=== PATIENT | male | born 1955 | race Caucasian/White ===

== ENCOUNTER 2018-06-25 01:19 | Observation (INO) | payer MEDICAID ==
--- NOTE | 2018-06-25 02:19 | EDM.PDOC ---
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 He does not recall how long or what happened. There were no witnesses or accounts to length of time he was out. Patient denies prior head injury. He is AAOx3 but has loss of recent memory. 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 ED EXAM, HEAD INJURY - Physical Exam Exam: See Below Exam Limited By: No Limitations General Appearance: Alert, WD/WN, No Apparent Distress Head: Scalp Lacerations, Scalp Swelling, Scalp Hematoma, Scalp Tenderness Eyes: Bilateral Eye: EOMI, PERRL Ears: Normal External Exam, Normal Canal, Hearing Grossly Normal Nose: Normal Inspection, Normal Mucousa, No Blood Throat/Mouth: Normal Inspection, Normal Lips, Normal Oropharynx, Normal Voice, No Airway Compromise Neck: Non-Tender Respiratory: No Respiratory Distress, Lungs Clear, Normal Breath Sounds Cardiovascular: Normal Peripheral Pulses, Regular Rate, Rhythm GI/Abdominal Exam: Normal Bowel Sounds, Soft, Non-Tender Back Exam: Normal Inspection Extremities: Normal Inspection, Normal Range of Motion, Non-Tender, No Pedal Edema, Normal Capillary Refill 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 As Tested, No Motor/Sensory Deficits, Alert, Normal Mood/Affect, Oriented x 3 Skin: Normal Color, Warm/Dry Course - Vital Signs Last Recorded V/S: Last Vital Signs Temp 36.6 C 06/25/18 01:23 Pulse 62 06/25/18 01:23 Resp 20 06/25/18 01:23 BP 122/76 06/25/18 01:23 Pulse Ox 98 06/25/18 01:23 - Orders/Labs/Meds Orders: Active Orders 24 hr Category Date Time Status Patient Status [ADT] Routine ADT 06/25/18 02:12 Ordered Oxygen Therapy [RC] PRN Care 06/25/18 02:12 Ordered Up With Assistance [RC] ASDIRECTED Care 06/25/18 02:12 Ordered Vital Signs [RC] Q4H Care 06/25/18 02:12 Ordered Regular Diet [DIET] Diet 06/25/18 Breakfast Ordered Head wo Cont [CT] Stat Exams 06/25/18 01:21 Taken Soft Tissue Neck wo Cont [CT] Stat Exams 06/25/18 01:21 Taken Resuscitation Status Routine Resus Stat 06/25/18 02:12 Ordered Departure - Departure Time of Disposition: 02:25 Disposition: Refer to Observation Condition: Fair Clinical Impression: Loss of consciousness, Dizziness on standing, Memory loss, short term Occipital scalp laceration Qualifiers: Encounter type: initial encounter Qualified Code(s): S01.01XA - Laceration without foreign body of scalp, initial encounter Headache Qualifiers: Headache type: post-traumatic Headache chronicity pattern: acute headache Intractability: intractable Qualified Code(s): G44.311 - Acute post-traumatic headache, intractable - Discharge Information - Problem List & Annotations (1) Alcohol intoxication SNOMED Code(s): 25344157 Code(s): F10.929 - ALCOHOL USE, UNSPECIFIED WITH INTOXICATION, UNSPECIFIED Status: Acute Priority: High Qualifiers: Complication of substance-induced condition: with unspecified complication Qualified Code(s): F10.929 - Alcohol use, unspecified with intoxication, unspecified (2) Dizziness on standing SNOMED Code(s): 160399694 Code(s): R42 - DIZZINESS AND GIDDINESS Status: Acute (3) Headache SNOMED Code(s): 51394675 Code(s): R51 - HEADACHE Status: Acute (4) Loss of consciousness SNOMED Code(s): 233175413, 584971541 Code(s): R40.20 - UNSPECIFIED COMA Status: Acute (5) Memory loss, short term SNOMED Code(s): 379910452 Code(s): R41.3 - OTHER AMNESIA Status: Acute (6) Occipital scalp laceration SNOMED Code(s): 482133870 Code(s): S01.01XA - LACERATION WITHOUT FOREIGN BODY OF SCALP, INITIAL ENCOUNTER Status: Acute Qualifiers: Encounter type: initial encounter Qualified Code(s): S01.01XA - Laceration without foreign body of scalp, initial encounter (7) Concussion SNOMED Code(s): 010927565 Code(s): S06.0X9A - CONCUSSION W LOSS OF CONSCIOUSNESS OF UNSP DURATION, INIT Status: Acute Priority: High Qualifiers: Encounter type: initial encounter Loss of consciousness presence/duration: with LOC of unspecified duration Qualified Code(s): S06.0X9A - Concussion with loss of consciousness of unspecified duration, initial encounter - Problem List Review Problem List Initiated/Reviewed/Updated: Yes - My Orders Last 24 Hours: My Active Orders 06/25/18 01:21 Head wo Cont [CT] Stat Soft Tissue Neck wo Cont [CT] Stat 06/25/18 02:12 Patient Status [ADT] Routine Oxygen Therapy [RC] PRN Up With Assistance [RC] ASDIRECTED Vital Signs [RC] Q4H Resuscitation Status Routine 06/25/18 Breakfast Regular Diet [DIET] - Assessment/Plan Last 24 Hours: My Active Orders 06/25/18 01:21 Head wo Cont [CT] Stat Soft Tissue Neck wo Cont [CT] Stat 06/25/18 02:12 Patient Status [ADT] Routine Oxygen Therapy [RC] PRN Up With Assistance [RC] ASDIRECTED Vital Signs [RC] Q4H Resuscitation Status Routine 06/25/18 Breakfast Regular Diet [DIET] Plan: Patient to be placed into observation for current memory loss, confusion, intoxication, dizziness and concussion syndrome. We will monitor and reassess later today.
[2018-06-25] MEDS ORDERED: Acetaminophen 500 MG Tab PO PRN (02:22)
[2018-06-25] MEDS ORDERED: Sodium Chloride 0.9% 1,000 ML IV SCH (02:30)
--- NOTE | 2018-06-25 08:04 | CT ---
DATE OF SERVICE: 06/25/18 CLINICAL DATA: FALL AND UNRESPONSIVE UNENHANCED BRAIN CT: Multislice acquisition through the brain without IV contrast was performed. No priors. There is mild diffuse cerebral atrophy. No masses or mass effect. No intracranial hemorrhage. No evidence of acute or subacute infarct. There is mucosal thickening of the ethmoid sinuses consistent with chronic sinusitis. There is a rounded low density lesion in the left maxillary sinus consistent with a retention cyst or polyp. No fractures. There is soft tissue swelling and soft tissue emphysema involving the scalp in the left occipital region consistent with the patient's clinical history. IMPRESSION: No acute intracranial abnormalities. [id number] MTDD
--- NOTE | 2018-06-25 08:08 | CT ---
DATE OF SERVICE: 06/25/18 CLINICAL DATA: FALL AND UNRESPONSIVE UNENHANCED CERVICAL SPINE CT: Multislice axial acquisition was performed. Axial images and sagittal and coronal reformations are reviewed. The vertebral bodies are of average height and in good alignment. No acute fracture or dislocation. There is straightening of the normal cervical lordosis on the sagittal reformations. This is most likely positional or due to muscle spasm. There is degenerative disc disease at multiple levels, greatest at the C5-6 and C6-7 levels. No lytic or blastic bone lesions. The soft tissues are unremarkable. IMPRESSION: No acute abnormalities. [id number] [facility]
--- NOTE | 2018-06-25 17:06 | PCM.DCSUM1 ---
Discharge Summary - Discharge Data Discharge Date: 06/25/18 Discharge Disposition: Home, Self-Care 01 Condition: Good - Discharge Diagnosis/Problem(s) (1) Alcohol intoxication SNOMED Code(s): 02431361 ICD Code: F10.929 - ALCOHOL USE, UNSPECIFIED WITH INTOXICATION, UNSPECIFIED Status: Resolved Priority: High Qualifiers: Complication of substance-induced condition: with unspecified complication Qualified Code(s): F10.929 - Alcohol use, unspecified with intoxication, unspecified (2) Dizziness on standing SNOMED Code(s): 454093198 ICD Code: R42 - DIZZINESS AND GIDDINESS Status: Resolved (3) Headache SNOMED Code(s): 32182863 ICD Code: R51 - HEADACHE Status: Acute Priority: Medium Qualifiers: Headache type: post-traumatic Headache chronicity pattern: acute headache Intractability: intractable Qualified Code(s): G44.311 - Acute post- traumatic headache, intractable (4) Loss of consciousness SNOMED Code(s): 826647944, 432080140 ICD Code: R40.20 - UNSPECIFIED COMA Status: Resolved (5) Memory loss, short term SNOMED Code(s): 713923839 ICD Code: R41.3 - OTHER AMNESIA Status: Acute Priority: Medium (6) Occipital scalp laceration SNOMED Code(s): 220845678 ICD Code: S01.01XA - LACERATION WITHOUT FOREIGN BODY OF SCALP, INITIAL ENCOUNTER Status: Acute Priority: Medium Qualifiers: Encounter type: initial encounter Qualified Code(s): S01.01XA - Laceration without foreign body of scalp, initial encounter (7) Concussion SNOMED Code(s): 569404314 ICD Code: S06.0X9A - CONCUSSION W LOSS OF CONSCIOUSNESS OF UNSP DURATION, INIT Status: Acute Priority: High Qualifiers: Encounter type: initial encounter Loss of consciousness presence/duration: with LOC of unspecified duration Qualified Code(s): S06.0X9A - Concussion with loss of consciousness of unspecified duration, initial encounter - Discharge Plan Home Medications: Home Meds . [Unable to Verify Home Med List] 06/25/18 [History] Patient Handouts: Concussion, Adult, Venb-fp-Lexs, Head Injury, Adult, Benign Prostatic Hyperplasia Forms: ED Department Discharge - Discharge Summary/Plan Comment DC Time >30 min.: Yes Discharge Summary/Plan Comment: Counseled on concussion. Discussion of monitoring concussion and for further symptoms of differential of subdural hematoma etc. Patient will f/u with PCP in clinic in the next few days. Patient to f/u in ER if any worsening symptoms. F/ u CT head as directed if any further symptoms. Discussed close monitoring and f/ u. - General Info Date of Service: 06/25/18 Functional Status: Reports: Pain Controlled, Tolerating Diet, Ambulating - Review of Systems General: Reports: No Symptoms HEENT: Reports: Headaches Pulmonary: Reports: No Symptoms Cardiovascular: Reports: No Symptoms Gastrointestinal: Reports: No Symptoms Genitourinary: Reports: Retention Musculoskeletal: Reports: No Symptoms Neurological: Reports: Headache - Patient Data Vitals - Most Recent: Last Vital Signs Temp 36.4 C 06/25/18 06:12 Pulse 54 L 06/25/18 06:12 Resp 16 06/25/18 06:12 BP 105/52 L 06/25/18 06:12 Pulse Ox 97 06/25/18 06:12 Weight - Most Recent: 99.79 kg Med Orders - Current: Current Medications Discontinued Medications Acetaminophen (Tylenol Extra Strength) 1,000 mg PO Q8H PRN PRN Reason: Headache Sodium Chloride (Normal Saline) 1,000 mls @ 150 mls/hr IV ASDIRECTED [facility] Last Admin: 06/25/18 03:13 Dose: 150 mls/hr - Exam General: Reports: Alert, Oriented, Cooperative HEENT: Reports: Pupils Equal, Pupils Reactive, EOMI, Mucous Membr. Moist/[place] Neck: Reports: Supple Lungs: Reports: Clear to Auscultation, Normal Respiratory Effort Cardiovascular: Reports: Regular Rate, Regular Rhythm GI/Abdominal Exam: Normal Bowel Sounds, Soft, Non-Tender Back Exam: Reports: Normal Inspection Extremities: Normal Inspection Skin: Reports: Warm, Dry, Intact Neurological: Reports: No New Focal Deficit Psy/Mental Status: Reports: Alert, Normal Affect, Normal Mood
== END 2018-06-25 09:48 | disposition home or self-care (01) ==
LOC: LB.ED 01:19 → LB.MS 02:12 → UNDOADMOB 02:15
PROVIDERS: ADMIT Family Medicine; ATTEND Family Medicine
DX: S06.0X9A Concussion with loss of consciousness of unspecified duration, initial encounter (principal); F10.929 Alcohol use, unspecified with intoxication, unspecified; S01.01XA Laceration without foreign body of scalp, initial encounter; R42 Dizziness and giddiness; R40.20 Unspecified coma; G44.311 Acute post-traumatic headache, intractable; R41.3 Other amnesia
CPT/HCPCS: 70450; 72125; A0425; A0429; G0378; J7030

== ENCOUNTER 2021-07-08 10:56 | Emergency (ER) | payer BC ==
[2021-07-08] MEDS ORDERED: methylPREDNISolone 4 MG Tab 21 Tab/Dosepak ONE (11:00)
[2021-07-08] MEDS: Orphenadrine 60 MG/2 ML Inj IM ONE (11:10)
[2021-07-08] MEDS: Ketorolac 30 MG/ML SDV IM ONE (11:12)
== END 2021-07-08 11:45 | disposition home or self-care (01) ==
LOC: LB.ED 10:56
DX: M54.42 Lumbago with sciatica, left side (principal); E11.9 Type 2 diabetes mellitus without complications; I10 Essential (primary) hypertension; Z72.0 Tobacco use; Z88.0 Allergy status to penicillin
CPT/HCPCS: 96372; 99283; J1885; J2360; J7509